=== PATIENT | female | born 1945 | race Caucasian/White ===

== ENCOUNTER 2017-08-14 08:18 | Inpatient (IN) | payer OTHER ==
[2017-07-27 08:21] VITALS: BMI 36.0
--- NOTE | 2017-07-27 08:54 | PAT Medication Instructions ---
Service Date Jul 27, 2017. Current Home Medication List Aspirin (Aspirin Ec), 81 MG PO HS Atorvastatin (Lipitor), 20 MG PO HS Calcium Carbonate-Vitamin D (Calcium + D), 1 TAB PO QAM Cholecalciferol (Vitamin D3), 1 TAB PO QAM Fluorometholone (Ophth) (Fml Liquifilm), 1 DROPS OPL QAM Hydrochlorothiazide (Hydrochlorothiazide), 1 TAB PO QAM Ibuprofen Tab (Advil), 400 MG PO PRN Lisinopril (Prinivil), 20 MG PO QAM Omeprazole (Prilosec), 20 MG PO QAM Rizatriptan Benzoate (Maxalt), 10 MG PO PRN Medication Instructions For Your Scheduled Surgery - Check with surgeon for instructions: Ibuprofen Tab (Advil), 400 MG PO PRN - Hold the following medications the morning of surgery: Lisinopril (Prinivil), 20 MG PO QAM Hydrochlorothiazide (Hydrochlorothiazide), 1 TAB PO QAM Calcium Carbonate-Vitamin D (Calcium + D), 1 TAB PO QAM Cholecalciferol (Vitamin D3), 1 TAB PO QAM - Take the following medications the morning of surgery with a sip of water: Fluorometholone (Ophth) (Fml Liquifilm), 1 DROPS OPL QAM Omeprazole (Prilosec), 20 MG PO QAM Rizatriptan Benzoate (Maxalt), 10 MG PO PRN (if needed) - Take the following medications as scheduled the night before surgery: Rizatriptan Benzoate (Maxalt), 10 MG PO PRN (if needed) Aspirin (Aspirin Ec), 81 MG PO HS Atorvastatin (Lipitor), 20 MG PO HS If you have any questions please call us at [phone] or [phone] or [phone]
--- NOTE | 2017-07-27 09:32 | DIAGNOSTIC IMAGING REPORT ---
CHEST 2 VIEWS ROUTINE CLINICAL HISTORY: 72 years-old Female presenting with preoperative assessment. TECHNIQUE: PA and lateral views of the chest were obtained. COMPARISON: None. FINDINGS: Cardiomediastinal silhouette normal. Lungs and pleural spaces clear. Partially visualized cervical fusion hardware. Cholecystectomy clips noted. IMPRESSION: 1. No acute cardiopulmonary disease. Electronically signed by: Josse Martins M.D. 07/27/2017 9:30 AM Dictated Date/Time: 07/27/2017 9:29 AM
[2017-07-27 10:35] LABS: BASO % 0.5 %; BASO ABS # 0.03 K/uL (0-0.2); EOS % 3.8 %; EOS ABS # 0.22 K/uL (0-0.5); HEMATOCRIT 38.5 % (37-47); HEMOGLOBIN 13.3 g/dL (12.0-16.0); LYMPH % 25.3 %; LYMPH ABS # 1.46 K/uL (1.2-3.4); MEAN CELL VOLUME 92.3 fL (80-100); MEAN CORPUSCULAR HEMOGLOBIN 31.9 pg (25-34); MEAN CORPUSCULAR HGB CONC 34.5 g/dl (32-36); MEAN PLATELET VOLUME 12.7 fL (7.4-10.4); MONO % 7.4 %; MONO ABS # 0.43 K/uL (0.11-0.59); NEUT ABS # 3.64 K/uL (1.4-6.5); PLATELET COUNT 196 K/uL (130-400); RED CELL DISTRIBUTION WIDTH CV 13.3 % (11.5-14.5); RED CELL DISTRIBUTION WIDTH SD 44.4 fL (36.4-46.3); WHITE BLOOD COUNT 5.78 K/uL (4.8-10.8)
[2017-07-27 10:54] LABS: PTT PATIENT 23.4 SECONDS (21.0-31.0)
--- NOTE | 2017-08-07 18:20 | HISTORY & PHYSICAL EXAMINATION ---
DATE OF ADMISSION: 08/14/2017 CHIEF COMPLAINT: Bilateral knee pain and discomfort, right side greater than left. HISTORY OF PRESENT ILLNESS: A 72-year-old female referred by my partner Dr. Lutz for treatment of her right knee, particularly. She has a long history of on and off bilateral knee pain and discomfort, right side greater than left. She did have her right knee scoped back in 2008. She had a scope and partial meniscectomy. She did pretty well for a while, but over the past year or so, she developed increased pain and discomfort which has gotten significantly worse over the past 6 months. She has failed conservative treatment including injections and medicines. She also reports instability of her knees as it gives out. She now would like to proceed with surgical treatment. PAST MEDICAL HISTORY: Significant for: 1. Hypertension. 2. Elevated cholesterol. 3. Sleep apnea. 4. Obesity with a BMI of 36.4. PAST SURGICAL HISTORY: Include: 1. Hysterectomy. 2. ACDF in 2000. 3. Right knee arthroscopy. 4. Left knee arthroscopy. 5. Sinus surgery. 6. Low back surgery. ALLERGIES: AMOXICILLIN, WHICH CAUSES GI UPSET. No real true allergy. CURRENT MEDICINES: Include: 1. Lisinopril. 2. Hydrochlorothiazide 3. Omeprazole. 4. Rizatriptan. 5. Aspirin. 6. Calcium. 7. Vitamin D. SOCIAL HISTORY: A 72-year-old female. She lives in [place]. She is . Rare alcohol intake. Does not smoke. FAMILY HISTORY: Significant for heart disease and stroke. REVIEW OF SYSTEMS: Negative for diabetes, neurologic problems, vascular problems, bleeding disorders. No chest pain or shortness of breath. No history of DVT or PE. PHYSICAL EXAMINATION: GENERAL: A pleasant, middle-aged female. Looks in pretty good health. HEENT: Benign. NECK: Supple. No lymphadenopathy. LUNGS: Clear to auscultation. HEART: Regular rate and rhythm. ABDOMEN: Soft, nontender, nondistended. EXTREMITIES: Grossly neurovascularly intact except as follows: Examination of the right leg reveals the patient walks with a slight bit of a limp. She has valgus alignment to her knee which is worse with weightbearing. She has a moderate soft tissue envelope. Small knee effusion. Range of motion is 5-125. No instability. X-RAYS: X-rays of the right knee reviewed. She has advanced right knee DJD. She has complete loss of her lateral joint space. She has osteophytes particularly in the lateral compartment. She has chondrocalcinosis. ASSESSMENT: A 72-year-old female with advanced bilateral knee degenerative joint disease, right side more symptomatic than the left. She has failed conservative treatment, would like to have her right knee replaced. PLAN: We are going to take her to the operating room and do a right total knee replacement. The risks and benefits of this procedure were explained to the patient include but not limited to DVT, PE, , infection, neurological injury, vascular injury, bleeding problem, pain, limited range of motion, stiffness, failure to relieve her symptoms, incomplete relief of symptoms, need for further surgery in future, fracture, leg length inequality, nerve palsy, etc. The patient understands and desires to proceed. Informed consent was obtained. We did talk about holding her lisinopril the morning of surgery. Her reaction to penicillin is not true anaphylaxis so we will give her Ancef. She is planning to be discharged home using [facility] home health program and her 's assistance.
[~2017-08-14] VITALS: Ht 160 cm; Wt 91.8 kg
[~2017-08-14 08:18] MED LIST: ACETAMINOPHEN 500 MG TAB PO SCH; ASPI81TA28 PO; ATOR-22 PO; BUPIVACAINE 0.5 % 5 MG/1 ML PF 10ML VIAL ONE; BUPIVACAINE LIPOSOME 266 MG, BUPIVACAINE/EPINEPHRINE INJ 50 ML, SODIUM CHLORIDE 0.9% PF... INFIL SCH; CALC600T9 PO; CEFAZOLIN 2000MG IV PUSH 15 ML IV SCH; CHOL1000 PO; FAMOTIDINE 20 MG TAB PO SCH; FLUO0.1S2 OPL; GABAPENTIN 300 MG CAP PO SCH; HYDR12.55 PO; IBUP-103 PO; LACTATED RINGER'S 1000ML 1,000 ML IV SCH; LACTATED RINGER'S 1000ML 500 ML IV SCH; LACTATED RINGER'S 1000ML IV SCH; LISI20TA3 PO; METOCLOPRAMIDE HCL 10 MG TAB PO SCH; PRLSR20 PO; RIZA10TA18 PO; TRANEXAMIC ACID INJ 1,000 MG x 2 Bags IV SCH
--- NOTE | 2017-08-14 08:44 | History & Physical Bridge Note ---
H&P Re-Evaluation Bridge Note: I have examined the patient, reviewed the History & Physical and in the interval since the performance of the History & Physical I have noted the following changes of clinical significance: No changes noted
[2017-08-14 08:59] VITALS: BP 147/98; PULSE 81; TEMP 36.6; O2SAT 97; Ht 160 cm; Wt 91.8 kg
[2017-08-14] MEDS ORDERED: LIDOCAINE HCL 2% 2 ML VIAL (20MG/ML) ONE (09:46)
[2017-08-14] MEDS ORDERED: PROPOFOL IV EMULSION 10 MG/ML 20 ML VIAL IV ONE (09:46)
[2017-08-14] MEDS ORDERED: ONDANSETRON INJ 2 MG/ML 2 ML VIAL ONE (09:46)
[2017-08-14] MEDS ORDERED: DEXAMETHASONE SOD INJ 4 MG/ML VIAL ONE (09:46)
[2017-08-14] MEDS ORDERED: MIDAZOLAM HCL 1 MG/ML 2ML VIAL ONE (09:47)
[2017-08-14] MEDS ORDERED: FENTANYL CITRATE INJ 50 MCG/1 ML 2 ML VIAL ONE (09:47)
[2017-08-14] MEDS ORDERED: SODIUM CHLORIDE 0.9% PF 50 ML VIAL ONE (10:43)
[2017-08-14] MEDS ORDERED: BUPIVACAINE LIPOSOME 1/3% 266 MG/20 ML VIAL INFIL ONE (10:43)
[2017-08-14] MEDS ORDERED: BACITRACIN 50000 UNIT VIAL ONE (10:43)
[2017-08-14] MEDS ORDERED: EpINEphrine INJ 1MG/ML AMP 1 MG/ML AMP ONE ×2 (10:44→10:55)
[2017-08-14] MEDS ORDERED: BUPIVACAINE 0.25% 30 ML VIAL ONE ×2 (10:44→10:53)
[2017-08-14] MEDS ORDERED: FENTANYL CITRATE INJ 50 MCG/1 ML 2 ML VIAL IV PRN (11:00)
[2017-08-14] MEDS ORDERED: EpHEDrine SULFATE INJ 50 MG/ML AMP IV PRN (11:00)
[2017-08-14] MEDS ORDERED: ONDANSETRON INJ 2 MG/ML 2 ML VIAL IV PRN ×2 (11:00→12:45)
[2017-08-14] MEDS ORDERED: ATROPINE SULFATE 0.1 MG/ML 5ML SYR IV PRN (11:00)
--- NOTE | 2017-08-14 12:38 | [facility] Post Operative Brief Note ---
Immediate Operative Summary Operative Date Aug 14, 2017. Pre-Operative Diagnosis Right Knee Degenerative Joint Disease Post-Operative Diagnosis Right Knee Degenerative Joint Disease Procedure(s) Performed Right Total Knee Arthroplasty Cemented Surgeon Dr Trimble Market Risk Analyst Surgeon(s) Enrique Neely PA-C Estimated Blood Loss 50cc Findings Consistent with Post-Op Diagnosis Specimens As Per Surgeon A. Right Knee Bone and Tissue Drains None Anesthesia Type MAC Spinal Regional Complication(s) none Disposition Accompanied Pt To Recover: no Disposition: Recovery Room / PACU
[2017-08-14] MEDS ORDERED: BISACODYL 10 MG SUPP PR PRN (12:45)
[2017-08-14] MEDS ORDERED: MAGNESIUM HYDROXIDE SUSP 30 ML UDC PO PRN (12:45)
[2017-08-14] MEDS ORDERED: CEFAZOLIN IV 2,000 MG in DEXTROSE 5% 50ML 50 ML IV SCH (12:45)
[2017-08-14] MEDS ORDERED: ALUMINUM/MAGNESIUM/SIMETH (MAALOX MAX) 30 ML UDC PO PRN (12:45)
[2017-08-14] MEDS ORDERED: SILVER SULFADIAZINE 1% CR 50 GM JAR EXT PRN (12:45)
[2017-08-14] MEDS ORDERED: METOCLOPRAMIDE HCL INJ 5 MG/ML 2 ML VIAL IV PRN (12:45)
[2017-08-14] MEDS ORDERED: ZOLPIDEM TARTRATE 5 MG TAB PO PRN (12:45)
[2017-08-14] MEDS ORDERED: RIZATRIPTAN BENZOATE 10 MG TAB PO PRN (12:45)
[2017-08-14] MEDS ORDERED: HYDROmorphone INJ 0.5 MG/0.5 ML SYR IV PRN (12:45)
--- NOTE | 2017-08-14 13:10 | DIAGNOSTIC IMAGING REPORT ---
R KNEE 1 OR 2 VIEWS ROUTINE CLINICAL HISTORY: Postoperative evaluation. COMPARISON: Right knee radiographs February 20, 2017. FINDINGS: Alignment of the total right knee arthroplasty is anatomic. There is no fracture or unexpected radiopaque foreign body. Skin debra are present. IMPRESSION: Expected findings following total right knee arthroplasty. Electronically signed by: Gautam Jerome M.D. 08/14/2017 1:08 PM Dictated Date/Time: 08/14/2017 1:08 PM
--- NOTE | 2017-08-14 13:20 | Anesthesiology Progress Note ---
Anesthesia Post Op Note Date & Time Aug 14, 2017 at 13:20 Vital Signs Pain Intensity: 0 Vital Signs Past 12 Hours Date Time Temp Pulse Resp B/P (MAP) Pulse Ox O2 Delivery O2 Flow Rate FiO2 08/14/17 13:15 36.3 84 19 111/68 97 Nasal Cannula 2 08/14/17 13:05 84 10 113/71 98 Nasal Cannula 2 08/14/17 12:55 88 11 117/65 98 Nasal Cannula 2 08/14/17 12:46 36.4 91 24 77/59 94 Nasal Cannula 2 08/14/17 08:59 36.6 81 18 147/98 97 Room Air Notes Mental Status: alert / awake / arousable, participated in evaluation Pt Amnestic to Procedure: Yes Nausea / Vomiting: adequately controlled Pain: adequately controlled Airway Patency, RR, SpO2: stable & adequate BP & HR: stable & adequate Hydration State: stable & adequate Neuraxial Anesthesia: was administered, sensory block is resolving Anesthetic Complications: no major complications apparent
[2017-08-14 14:08] VITALS: BP 122/81; PULSE 81; TEMP 36.5; O2SAT 98
[2017-08-14 14:42] VITALS: BP 140/81; PULSE 88; TEMP 36.5; O2SAT 93
[2017-08-14] MEDS: D5W AND 1/2NSS + 20MEQ KCL 1,000 ML IV SCH (15:08)
--- NOTE | 2017-08-14 15:10 | PROGRESS NOTE ---
DATE: 08/14/2017 SUBJECTIVE: A 72-year-old female postop from a right knee replacement. She is doing well. Not having any pain yet. No chest pain or shortness of breath. Not feeling dizzy or lightheaded. OBJECTIVE: VITAL SIGNS: Temperature is 36.5. Vital signs stable. PHYSICAL EXAMINATION: GENERAL: Reveals a pleasant elderly female. She is sitting up in bed and looks comfortable. She is talking to her family. She has eaten her lunch/dinner combination. LUNGS: Clear to auscultation. HEART: Has a regular rate and rhythm. ABDOMEN: Soft, nontender, nondistended. EXTREMITIES: Grossly neurovascularly intact except as follows. Examination of the right knee reveals the leg to be well aligned. Dressing is clean, dry and intact. She can dorsiflex and plantarflex her foot appropriately. She is neurologically intact. X-RAYS: X-ray of the right knee from recovery room reviewed. It shows right cemented posterior stabilized total knee arthroplasty. Components looked to be in good position. No signs of problems. ASSESSMENT: A 72-year-old female postop from a right knee replacement, doing well. Pain is controlled. She is neurologically intact. PLAN: 1. DVT prophylaxis including thigh-high TEDs, SCDs, and aspirin twice a day. 2. PT/OT. Weight bear as tolerated. Right total knee protocol. 3. Pain control, doing well with current pain regimen. 4. IV antibiotics x24 hours. 5. Disposition: Plan to discharge to home with some home health likely once adequately recovered.
[2017-08-14] MEDS: TRAMADOL HCL 50 MG TAB PO PRN ×2 (15:15→20:33)
[2017-08-14 15:27] VITALS: BP 120/79; PULSE 80; TEMP 36.5; O2SAT 93
--- NOTE | 2017-08-14 16:52 | OPERATIVE REPORT ---
DATE OF OPERATION: 08/14/2017 SURGEON: Cruzito Trimble MD RESIDENTIAL SOLAR CONSULTANT: HANY Vogel PREOPERATIVE DIAGNOSIS: Right knee degenerative joint disease. POSTOPERATIVE DIAGNOSIS: Same. PROCEDURE PERFORMED: Right cemented posterior stabilized total knee arthroplasty. COMPLICATIONS: None. ESTIMATED BLOOD LOSS: 50 mL FLUID REPLACEMENT: 2000 mL crystalloid fluid replacement. ANESTHESIA: Spinal with adductor canal block. DRAINS: None. SPECIMENS: Right knee sent for pathology. OPERATIVE INDICATIONS: The patient is a 72-year-old female who had a fairly long history of bilateral knee pain and discomfort. She has been treated by my partner Dr. Lutz over the years. This became less successful over time. X-rays show advanced DJD and she would like to proceed with surgical treatment. OPERATIVE FINDINGS: Operative findings revealed advanced right knee DJD. She had grade 4 [id number] disease particularly in the lateral compartment. She did have grade 4 changes in all 3 compartments, but most severe laterally. She had a fixed valgus deformity to her knee. She had eburnation of the lateral femoral condyle and lateral tibial plateau. OPERATIVE IMPLANTS: Operative implants consisted of: 1. A Biomet Vanguard size 65 right posterior stabilized femoral component. 2. A Biomet size 67 tibial tray. 3. A 10-mm posterior stabilized polyethylene insert. 4. A 28 x 8 all poly patella. OPERATIVE PROCEDURE: The patient was taken to the operating room, identified and placed on the operating table in supine position. All contact areas were appropriately padded. IV antibiotics were provided by the anesthesia team. A spinal anesthetic and adductor canal block provided in the holding area. Serrano catheter was placed in sterile fashion. The right thigh tourniquet was then placed. The right lower extremity was then prepped and draped in usual sterile fashion. The right leg was elevated and exsanguinated with Esmarch and tourniquet was placed at 300 mmHg. An anterior approach to the right knee was then performed through a longitudinal incision centered over the patella. Sharp dissection was carried out through the subcutaneous tissues down to the level of the extensor mechanism. A medial parapatellar arthrotomy incision was made. Some subperiosteal dissection was carried out medially. The fat pad was resected from beneath the patellar tendon. The lateral patellofemoral ligament was released. Patella was everted and the knee was flexed. The osteophytes were taken off the distal femur. The ACL and PCL were then released from the distal femur. The tibia was subluxated anteriorly. The external tibial alignment jig was then placed in the anterior face of the tibia and adjusted 12 mm medially. Proximal tibial cut was made to remove about 3-4 mm of bone from the most deficient aspect of the medial tibial plateau. The tibia was then sized to a size 67. Attention was then drawn to the femur. The distal femur was entered with a sharp drill bit. Intramedullary canal was suctioned. A right 5-degree valgus cutting guide was placed. The distal femoral cutting block was pinned in place. Distal femoral cut was made to take an additional 3 mm of bone off the distal femur. Femur was then sized to a size 65. We did downsize this slightly. The AP cutting block was pinned parallel to the epicondylar axis, which was 6 degrees of external rotation. The anterior cut, anterior chamfer, posterior cut, posterior chamfer cuts were made. Box cutting guide was placed and adjusted slight lateral and the box cut was made. I then brought the knee out in extension. I did release the IT band in order to equalize the extension gap. I then flexed the knee and released the popliteus to equalize the flexion gap. A trial femoral component was placed. Tibial tray was pinned in maximum external rotation and drill and stem punch were used to create defect in proximal tibia for the tibial tray. The knee was then trialed and the 10-mm insert fit most appropriately. Attention was then drawn to the patella. The patella was cleaned of all soft tissues. Patella thickness measured 18 mm in thickness and was cut down to 12. It was sized to a size 28 patella. Locals were drilled for a 28 patella. Lateral osteophyte was removed. Patella button was placed. The knee was taken through range of motion and the patella tracked nicely with no thumbs test. Attention was then drawn toward placement of permanent components. All trial components were removed. A bone plug was placed in the distal femur to limit blood loss. A double batch of Palacos G cement was mixed. A right size 65 posterior stabilized femoral component, size 67 tibial tray, a 10-mm posterior stabilized polyethylene insert, and a 28 x 8 all poly patella then cemented in place. The knee was brought into full extension until cement hardened. A final cement check was then performed. Pericapsular tissues were injected with a total of 100 mL of a combination of 20 mL of Exparel, 30 mL normal saline, 50 mL of 0.25% Marcaine with epinephrine. The patient did receive 1 gram of tranexamic acid. The tourniquet was then let down for a tourniquet time of 51 minutes. Hemostasis was assured with the use of electrocautery. The wound was once again irrigated. The extensor mechanism was then closed with a combination of #1 PDS suture and #1 Vicryl suture in a [id number] fashion. Extensor mechanism was checked and found to be intact. The subcutaneous tissue then closed with 2-0 Dexon suture in a buried interrupted fashion. Skin was closed with skin debra. Leg was then cleaned and dried and a sterile dressing of Xeroform, 4 x 4's, sterile cast padding and Michael bandage were applied. The patient was then transferred to the recovery room in stable condition. The patient tolerated the procedure well with no complications. All needle and sponge counts were correct at the end of the operation. I attest to the content of the Intraoperative Record and any orders documented therein. Any exception s are noted below.
[2017-08-14] MEDS: KETOROLAC TROMETHAMINE 15 MG/ML VIAL IV. SCH (17:35)
[2017-08-14] MEDS ORDERED: TRANEXAMIC ACID INJ 1,000 MG in SODIUM CHLORIDE 0.9% 100ML 100 ML IV SCH (18:00)
[2017-08-14] MEDS: FERROUS GLUCONATE 324 MG TAB PO SCH (18:19)
[2017-08-14] MEDS: CEFAZOLIN IV 2,000 MG in SYRINGE 0 ML IV SCH (20:12)
[2017-08-14] MEDS: ACETAMINOPHEN 500 MG TAB PO SCH (20:13)
[2017-08-14] MEDS: ATORVASTATIN 20 MG TAB PO SCH (20:13)
[2017-08-14] MEDS: ASPIRIN 81 MG ECTAB PO SCH (20:14)
[2017-08-14] MEDS: SENNA 8.6 MG TAB PO SCH (20:15)
[2017-08-14] MEDS: DOCUSATE SODIUM 100 MG CAP PO SCH (20:15)
[2017-08-14 20:28] VITALS: BP 117/77; PULSE 94; TEMP 36.5; O2SAT 94
[2017-08-14 23:25] VITALS: BP 118/82; PULSE 85; TEMP 36.6; O2SAT 91
[2017-08-15] MEDS: D5W AND 1/2NSS + 20MEQ KCL 1,000 ML IV SCH ×2 (00:14→10:28)
[2017-08-15] MEDS: KETOROLAC TROMETHAMINE 15 MG/ML VIAL IV. SCH ×5 (00:14→23:55)
[2017-08-15 03:29] VITALS: BP 117/75; PULSE 84; TEMP 36.5; O2SAT 96
[2017-08-15] MEDS: ACETAMINOPHEN 500 MG TAB PO SCH ×3 (03:55→20:15)
[2017-08-15] MEDS: CEFAZOLIN IV 2,000 MG in SYRINGE 0 ML IV SCH (03:55)
[2017-08-15 06:19] LABS: HEMATOCRIT 29.5 % (37-47); HEMOGLOBIN 10.2 g/dL (12.0-16.0); MEAN CELL VOLUME 90.8 fL (80-100); MEAN CORPUSCULAR HEMOGLOBIN 31.4 pg (25-34); MEAN CORPUSCULAR HGB CONC 34.6 g/dl (32-36); MEAN PLATELET VOLUME 12.2 fL (7.4-10.4); PLATELET COUNT 160 K/uL (130-400); RED CELL DISTRIBUTION WIDTH CV 13.7 % (11.5-14.5); RED CELL DISTRIBUTION WIDTH SD 45.8 fL (36.4-46.3); WHITE BLOOD COUNT 10.23 K/uL (4.8-10.8)
[2017-08-15 06:42] LABS: CREATININE 0.8 mg/dl (0.60-1.20)
[2017-08-15 07:12] VITALS: BP_SYST 114; BP_SYST 122; BP_DIAS 70; BP_DIAS 77; PULSE 64; PULSE 66; TEMP 36.7; O2SAT 93; O2SAT 94
--- NOTE | 2017-08-15 07:29 | PROGRESS NOTE ---
DATE: 08/15/2017 SUBJECTIVE: A 72-year-old female postop day 1 from right knee replacement. She is doing well. Really not much pain this morning. No chest pain or shortness of breath. Not feeling dizzy or lightheaded. OBJECTIVE: VITAL SIGNS: Temperature 36.5. Vital signs stable. GENERAL: Reveals a pleasant, elderly female. She is sitting up in bed and looks quite comfortable. She is awake, alert and oriented. EXTREMITIES: Examination of the right leg reveals the dressing to be clean, dry and intact. She can dorsiflex and plantarflex her foot appropriately. She is neurologically intact. LABORATORY DATA: Hemoglobin 10.2. Hematocrit 29.5. Electrolytes are stable. ASSESSMENT: A 72-year-old female postop day 1 from a right knee replacement, doing well. Pain is controlled. She is neurologically intact. PLAN: 1. DVT prophylaxis including thigh-high TEDs, SCDs, and aspirin twice a day. 2. PT/OT. Weight bear as tolerated. Right total knee protocol. 3. Pain control. Doing well with current pain regimen. 4. Disposition: She is hoping to be discharged to home with some home health once adequately recovered.
[2017-08-15] MEDS: TRAMADOL HCL 50 MG TAB PO PRN (08:40)
[2017-08-15] MEDS: HYDROCHLOROTHIAZIDE 25 MG TAB PO SCH (08:40)
[2017-08-15] MEDS: ASPIRIN 81 MG ECTAB PO SCH ×2 (08:41→20:15)
[2017-08-15] MEDS: PANTOprazole SOD 40 MG TAB PO SCH (08:41)
[2017-08-15] MEDS: DOCUSATE SODIUM 100 MG CAP PO SCH ×2 (08:41→20:15)
[2017-08-15] MEDS: MULTIVITAMIN TAB PO SCH (08:42)
[2017-08-15] MEDS: CALCIUM 600MG + VIT D 400 IU TAB PO SCH (08:42)
[2017-08-15] MEDS: FERROUS GLUCONATE 324 MG TAB PO SCH ×3 (08:42→18:03)
[2017-08-15] MEDS: LISINOPRIL 20 MG TAB PO SCH (08:43)
[2017-08-15] MEDS: CHOLECALCIFEROL 400 INTER.UNIT TAB PO SCH (08:43)
[2017-08-15] MEDS ORDERED: NON-FORMULARY MEDICATION (Omeprazole (Prilosec) 20 MG) PO SCH (09:00)
[2017-08-15 10:53] VITALS: BP 127/77; PULSE 66; O2SAT 95
[2017-08-15 11:32] VITALS: BP 114/73; PULSE 76; TEMP 36.6; O2SAT 95
[2017-08-15 15:45] VITALS: BP 140/82; PULSE 85; TEMP 36.6; O2SAT 98
[2017-08-15] MEDS: ATORVASTATIN 20 MG TAB PO SCH (20:15)
[2017-08-15] MEDS ORDERED: ACET-24 PO (20:15)
[2017-08-15] MEDS ORDERED: ASPEC81 PO (20:15)
[2017-08-15] MEDS: SENNA 8.6 MG TAB PO SCH (20:15)
[2017-08-15] MEDS ORDERED: ULT50X PO (20:15)
[2017-08-15] MEDS ORDERED: FRRG PO (20:15)
--- NOTE | 2017-08-15 20:18 | Discharge Instructions ---
Discharge Instructions Date of Service Aug 15, 2017. Admission Reason for Admission: Right Knee Degenerative Joint Disease Discharge Discharge Diagnosis / Problem: Right Knee Replacement Discharge Goals Goal(s): Decrease discomfort, Improve function, Increase independence, Improve disease control, Therapeutic intervention Activity Recommendations Activity Limitations: per Instructions/Follow-up section Weightbearing Status: Right weightbearing . Instructions / Follow-Up Instructions / Follow-Up ACTIVITY RECOMMENDATIONS: Physical Therapy: * You will go to physical therapy three times each week for four to six weeks after your surgery in order to regain your knee range of motion and to retrain your knee to work properly. * It is just as important to make sure you are getting your knee perfectly straight as it is to regain your knee bend. * Taking a pain pill an hour before therapy can help you have a more productive and comfortable therapy session. Home Exercise: * You were shown a series of exercises (heel props, heel slides, etc.) in the hospital. Do these exercises three to four times each day including the exercises you were shown in physical therapy. Walking: * Get up and walk several times each day. For the first four weeks, try not to stand or walk for more than one hour at a time. If you do stand or walk for more than one hour, you will not hurt anything, but your knee and leg will likely swell. * As you feel comfortable, you may change from the walker or crutches to a cane and then to independent walking. MEDICATIONS: New Medicine: * You will likely be taking one or more of these medications: 1. Tramadol - A quick and shorter-acting pain medication. Take one to two tablets every four to six hours to lessen your pain. 2. Iron Sulfate - Take two times each day for the month after surgery to help you replace the blood lost during surgery. 3. Aspirin - Thins your blood to lessen the chance of forming a blood clot. * The most common side effects of pain medicine and iron are nausea and constipation. If nausea or constipation is too much of a problem or if you have any questions about your new medicines or doses, call [facility] at . We will try to help you manage these issues. VERY IMPORTANT TO READ AND REVIEW" Pain: * The immediate post-operative period after knee replacement surgery is often quite painful. * You are given a prescription for pain medicine. You should take it, as directed, when you need it, especially before physical therapy and before going to bed. Pain that interferes with sleep is very common and can last several months. * You will likely need pain medicine for the first four to six weeks. It will not stop all of the pain. The pain will lessen and as you feel better, you may change to milder pain medicine such as Tylenol. * The most common side effects of pain medicine are nausea and constipation, so don't take more than you need. SPECIAL CARE INSTRUCTIONS: TEDs/Elastic Stockings: * The white elastic stockings help limit swelling and prevent blood clots from forming in your legs. The more you wear them, the more they work. * Wear them for six weeks after knee replacement surgery and four weeks after partial knee replacement. Prevention of Infection: * Take antibiotics one hour before any dental cleaning, dental work, urological procedure, gastrointestinal procedure or any invasive surgery in order to prevent your new joint from getting infected. * You may get the antibiotics from the doctor performing the procedure or you may call our office at before and we will call in a prescription to the pharmacy of your choice. Things to Watch For: * Drainage from the incision site that occurs more than one week after your surgery. * Severely increased knee/leg pain or swelling. * Increased redness at the incision site. * Fever above 102 degrees Fahrenheit. * Unusual chest pain or shortness of breath. * Unusual pain or burning with urination. Call [facility] at with any of the above problems or if you have any questions about your medicines or recovery. FOLLOW UP VISIT: Make an appointment to see your doctor for approximately two weeks after surgery for a progress check and staple removal by calling the office at . Current Hospital Diet Patient's current hospital diet: Regular Diet Discharge Diet Recommended Diet: Regular Diet Procedures Procedures Performed: Right Total Knee Arthroplasty Cemented Pending Studies Studies pending at discharge: no Medical Emergencies . Who to Call and When: Medical Emergencies: If at any time you feel your situation is an emergency, please call 501 immediately. . Non-Emergent Contact Non-Emergency issues call your: Surgeon . "Provider Documentation" section prepared by Cruzito Trimble. .
[2017-08-15 23:06] VITALS: BP 123/76; PULSE 86; TEMP 36.8; O2SAT 91
[2017-08-16] MEDS: ACETAMINOPHEN 500 MG TAB PO SCH (04:04)
[2017-08-16] MEDS: KETOROLAC TROMETHAMINE 15 MG/ML VIAL IV. SCH (06:00)
--- NOTE | 2017-08-16 06:23 | PROGRESS NOTE ---
DATE: 08/16/2017 SUBJECTIVE: A 72-year-old white female postop day 2 from a right knee replacement. She is doing well. Surprisingly little pain. Therapy went well. No chest pain or shortness of breath. Not feeling dizzy or lightheaded. OBJECTIVE: VITAL SIGNS: Temperature 36.8. Vital signs stable. GENERAL: Reveals a pleasant, middle-aged female. She is lying in bed this morning and looks quite comfortable. EXTREMITIES: Examination of the right leg reveals the dressing to be clean, dry and intact. Calf is soft and supple. She can dorsiflex and plantarflex her foot appropriately. She is neurologically intact. ASSESSMENT: A 72-year-old white female postop day 2 from right knee replacement, doing pretty well. Pain is controlled. PLAN: 1. DVT prophylaxis including thigh TEDs, SCDs, and aspirin twice a day. 2. PT/OT. Weight bear as tolerated. Right total knee protocol. 3. Pain control, doing pretty well with current pain regimen. 4. Disposition: Plan to discharge to home with some home health later today.
[2017-08-16 06:44] VITALS: BP 125/74; PULSE 84; TEMP 36.8; O2SAT 94
[2017-08-16] MEDS: LISINOPRIL 20 MG TAB PO SCH (07:55)
[2017-08-16] MEDS: MULTIVITAMIN TAB PO SCH (07:55)
[2017-08-16] MEDS: DOCUSATE SODIUM 100 MG CAP PO SCH (07:55)
[2017-08-16] MEDS: ASPIRIN 81 MG ECTAB PO SCH (07:55)
[2017-08-16] MEDS: CALCIUM 600MG + VIT D 400 IU TAB PO SCH (07:55)
[2017-08-16] MEDS: FERROUS GLUCONATE 324 MG TAB PO SCH (07:55)
[2017-08-16] MEDS: CHOLECALCIFEROL 400 INTER.UNIT TAB PO SCH (07:55)
[2017-08-16] MEDS: PANTOprazole SOD 40 MG TAB PO SCH (07:55)
[2017-08-16] MEDS: HYDROCHLOROTHIAZIDE 25 MG TAB PO SCH (07:55)
[2017-08-16 09:26] VITALS: BP 125/74; PULSE 84; TEMP 36.8; O2SAT 94
[2017-08-16] MEDS: TRAMADOL HCL 50 MG TAB PO PRN ×3 (10:27→11:34)
== END 2017-08-16 11:53 | disposition home health service (06) | DRG 470 ==
LOC: C.ACU 08:18 → C.3E 12:43 → ENRESERV 13:02
PROVIDERS: ADMIT Orthopaedic Surgery Sports Medicine; ATTEND Orthopaedic Surgery Sports Medicine
PROC: 0SRC0J9 Replacement of Right Knee Joint with Synthetic Substitute, Cemented, Open Approach (ICD-10-PCS; principal; 2017-08-14 11:00)
DX: M17.0 Bilateral primary osteoarthritis of knee (principal); I10 Essential (primary) hypertension; E78.00 Pure hypercholesterolemia, unspecified; G47.30 Sleep apnea, unspecified; E66.9 Obesity, unspecified; Z68.36 Body mass index [BMI] 36.0-36.9, adult; Z79.899 Other long term (current) drug therapy; Z79.82 Long term (current) use of aspirin

== ENCOUNTER 2022-04-01 05:01 | Observation (INO) ==
--- NOTE | 2022-03-26 10:52 | Anesthesiology Consultation ---
Date of Service March 26, 2022 Assessment & Plan (1) Encounter for pre-operative examination: Outpatient joint assessment: Patient is currently scheduled for inpatient pathway. If re-evaluated pending system levels during current pandemic/surgeon requests outpatient pathway, patient is not recommended candidate for outpatient joint program from anesthesia standpoint. - COVID screening: Per cupola operator on 03/26/2022: Travel screen negative, no known COVID-19 positive contacts or current COVID-19 related symptoms in past 2 weeks. To surgeon's discretion if preop COVID testing needed. Chart Review Chart Review: Acceptable Risk for Surgery and Patient NOT seen in Pre Admission Testing History Surgery Operation Date: 04/01/22 12:45 Proposed Procedures p Left Total Knee Arthroplasty - Cruzito Trimble MD Height/Weight Height: 5 ft 4 in Weight: 86.183 kg Allergies Allergy/AdvReac Type Severity Reaction Status Date / Time trifluridine Allergy Severe itching Verified 03/26/22 10:49 amoxicillin AdvReac Mild DIARRHEA Verified 03/26/22 10:07 Penicillins AdvReac Mild DIARRHEA Verified 03/26/22 10:07 Medications Home Medications Medication Instructions Recorded Confirmed Last Taken amoxicillin 500 mg tablet 2,000 mg PO ONCE #4 tabs 03/05/21 03/26/22 Unknown aspirin 81 mg capsule 81 mg PO HS 03/26/22 03/26/22 Unknown atorvastatin 20 mg tablet 20 mg PO HS 03/26/22 03/26/22 Unknown azelaic acid 15 % topical gel 1 applic topical BID PRN rosacea 03/26/22 03/26/22 Unknown calcium carbonate 600 mg-vitamin 1 tab PO QAM 03/26/22 03/26/22 Unknown D3 10 mcg (400 unit) tablet (Calcium 600 + D(3)) cetirizine 10 mg tablet (Zyrtec) 10 mg PO QAM 03/26/22 03/26/22 Unknown cholecalciferol (vitamin D3) 25 25 mcg PO QAM 03/26/22 03/26/22 Unknown mcg (1,000 unit) tablet (Vitamin D3) fluorometholone 0.1 % eye 1 drp ophthalmic (eye) 3XWK 03/26/22 03/26/22 Unknown drops,suspension hydrochlorothiazide 12.5 mg tablet 12.5 mg PO QAM 03/26/22 03/26/22 Unknown lisinopril 20 mg tablet 20 mg PO QAM 03/26/22 03/26/22 Unknown omeprazole 20 mg tablet,delayed 20 mg PO QAM 03/26/22 03/26/22 Unknown release rizatriptan 10 mg tablet 10 mg PO UD PRN Migraine Headache 03/26/22 03/26/22 Unknown Past Medical History Medical History (Updated 03/26/22 @ 10:48 by Penny Hester PA-C) GERD (gastroesophageal reflux disease) Hyperlipidemia Hypertension Migraine Prediabetes Past Family History Family History Mother Family history of reaction to anesthesia nausea/vomiting Past Surgical History Surgical History (Updated 03/26/22 @ 10:48 by Penny Hester PA-C) History of arthroscopy of left knee History of arthroscopy of right knee History of bilateral tubal ligation History of cholecystectomy History of colonoscopy History of esophagogastroduodenoscopy (EGD) History of fusion of cervical spine ROM History of lumbar discectomy History of sinus surgery History of tooth extraction History of total right knee replacement (TKR) 08/14/17: L3-L4 1 attempt + PNB. History of wisdom tooth extraction Social History Smoking Status: Never smoker Do You Dip or Chew Tobacco: No Hx Alcohol Use: Yes Alcohol type: wine alcohol intake frequency: a few times a month Hx Substance Use: No substance use type: does not use Lab Results Anesthesia Preop Results Results Anesthesia Widget: WBC 4.81 K/ul (4.8-10.8) 03/13/22 Hgb 12.4 g/dl (12.0-16.0) 03/13/22 Hct 35.9 % (34.1-44.9) 03/13/22 Plt 185 K/uL (130-400) 03/13/22 Na 140 mmol/L (136-145) 03/13/22 K 3.7 mmol/L (3.5-5.1) 03/13/22 Cl 103 mmol/L (98-107) 03/13/22 CO2 29 mmol/L (21-32) 03/13/22 BUN 21 mg/dl (6-23) 03/13/22 Creat 0.73 mg/dl (0.6-1.2) 03/13/22 Glucose Level 97 mg/dl (70-99(Fasting)) 03/13/22 PT 10.9 Seconds (9.0-12.0) 03/13/22 PTT 24.4 Seconds (21.0-31.0) 03/13/22 INR 1.0 (0.9-1.1) 03/13/22 Blood Type A Positive 03/13/22 Antibody Screen NEGATIVE 03/13/22 Testing Electrocardiogram Date: 03/13/22 Sinus rhythm with 1st degree AV block, rate 63 bpm
[2022-04-01] MEDS ORDERED: METOCLOPRAMIDE HCL 10 MG TABLET PO SCH (06:00)
[2022-04-01] MEDS ORDERED: LR 60ML/HR IV SCH (06:00)
[2022-04-01] MEDS ORDERED: ACETAMINOPHEN 500 MG TAB PO SCH (06:00)
[2022-04-01] MEDS ORDERED: LR 500ML BOLUS, THEN 15ML/HR IV SCH (06:00)
[2022-04-01] MEDS ORDERED: FAMOTIDINE 20 MG TAB PO SCH (06:00)
[2022-04-01] MEDS ORDERED: TRANEXAMIC ACID 1,000 MG **IV Intra-op IV SCH (06:00)
[2022-04-01] MEDS ORDERED: BUPIVACAINE LIPOSOME/PF 266 MG, BUPIVACAINE/EPINEPHRINE 50 ML, SODIUM CHLORIDE 0.9% 30 ... INFIL SCH (06:00)
[2022-04-01] MEDS ORDERED: CeleBREX 200 MG CAP PO SCH (06:00)
[2022-04-01] MEDS ORDERED: ceFAZolin 2000MG 2,000 MG/15 ML SYR IV SCH (06:00)
[2022-04-01] MEDS ORDERED: MIDAZOLAM HCL 1 MG/ML 2ML VIAL ONE (06:20)
[2022-04-01] MEDS ORDERED: PROPOFOL IV EMULSION 10 MG/ML 20 ML VIAL IV ONE ×2 (06:21)
[2022-04-01] MEDS ORDERED: fentaNYL citrate 100 MCG/2 ML VIAL ONE (06:21)
[2022-04-01] MEDS ORDERED: BUPIVACAINE 0.5 % 5 MG/1 ML PF 10ML VIAL ONE (06:27)
[2022-04-01] MEDS ORDERED: EPINEPHrine INJ 1 MG/ML AMP ONE (06:27)
[2022-04-01] MEDS ORDERED: DEXAMETHASONE SOD INJ 4 MG/ML VIAL ONE ×2 (06:27→08:11)
[2022-04-01] MEDS ORDERED: BUPIVACAINE 0.25% 30 ML VIAL ONE (06:27)
--- NOTE | 2022-04-01 06:31 | XRay Report ---
XR chest 2V PA/lateral CLINICAL HISTORY: Preoperative evaluation. COMPARISON STUDY: Chest radiograph 07/27/2017. FINDINGS: Spine fusion is partially imaged. There are cholecystectomy clips. Lung volumes are normal. Lungs are clear. There is no pneumothorax or pleural effusion. Mild cardiomegaly. Mediastinal contou rs are normal. There is no evidence for pulmonary edema. IMPRESSION: No acute cardiopulmonary findings. ACT 112: Negative or not required by law. Electronically signed by: Gautam Jerome M.D. 04/01/2022 6:29 AM
[2022-04-01] MEDS ORDERED: BUPIVACAINE LIPOSOME 1.3% 266 MG/20 ML VIAL ONE (06:36)
[2022-04-01] MEDS ORDERED: BUPIVACAINE/EPINEPHRINE 0.25% 1:200,000 30 ML VIAL ONE (06:36)
[2022-04-01] MEDS ORDERED: SODIUM CHLORIDE 0.9% PF 50 ML VIAL ONE (06:36)
--- NOTE | 2022-04-01 06:54 | History & Physical Bridge Note ---
Date of Service April 01, 2022 History & Physical Bridge Note I have examined the patient, reviewed the History & Physical and in the interval since the performance of the History & Physical I have noted the following changes of clinical significance: no changes noted
[2022-04-01] MEDS ORDERED: ONDANSETRON INJ 2 MG/ML 2 ML VIAL ONE (08:11)
[2022-04-01] MEDS ORDERED: ePHEDrine sulfate 50 MG/ML AMP IV PRN (08:41)
[2022-04-01] MEDS ORDERED: ONDANSETRON INJ 2 MG/ML 2 ML VIAL IV PRN ×2 (08:41→09:53)
[2022-04-01] MEDS ORDERED: ATROPINE SULFATE 0.1 MG/ML 10ML SYR IV PRN (08:41)
[2022-04-01] MEDS ORDERED: fentaNYL citrate 100 MCG/2 ML VIAL IV PRN (08:41)
--- NOTE | 2022-04-01 09:04 | Operative Report ---
PG Post Operative Report Pre & Post Diagnosis Operation Date: 04/01/22 07:00 Pre-Op Diagnosis: Left Knee Degenerative Joint Disease Post-Op Diagnosis: Left Knee Degenerative Joint Disease I identified the patient and participated in the time-out.: Yes Procedure Operation Date: 04/01/22 07:00 Actual Procedures p Left Total Knee Arthroplasty(Left) - Cruzito Trimble MD Surgeon Cruzito Trimble MD Residential Housekeeper Enrique Neely PA-C Estimated Blood Loss 50 Findings Consistent with Post-Op Diagnosis Operative findings were advanced left knee tricompartment DJD. She had grade 4 changes in all 3 compartments most severe in the medial side. Osteophytes primarily medially. Some moderate osteopenia. Fluids 1200 cc Specimens Left knee sent for pathology Anesthesia Type Spinal MAC Complications none Disposition Accompanied Patient To Recovery: No Indications Patient is 76-year-old female has had a long history of knee problems. She had a right knee replaced about 4 and half years ago and done well from this. She developed progressive increasing pain discomfort and limitations with regard to her left knee. X-ray showed advanced tricompartment arthritis. She elected proceed with surgical treatment. Description of Procedure Operative implants consist of: 1. Biomet Vanguard size 65 left posterior stabilized femoral component. 2. Biomet size 67 tibial tray. 3. 14 mm posterior stabilized polyethylene insert. 4. 28 x 8 all Paller patella. The patient was taken the operating, identified, placed on the operating table supine position. All contact. Were appropriately padded. IV antibiotics tried by anesthesia team. A a spinal anesthetic and abductor canal block had provided holding area. Serrano catheter was placed in sterile fashion. Left thigh tent was then placed in the left lower extremities then prepped and draped in usual sterile fashion. The left leg was elevated exsanguinated with use of an Esmarch in terms playset 300 mmHg. An anterior approach left knee was then performed to longitudinal incision centered over the patella. Sharp dissection got through subcutaneous tissue down the extensor mechanism. A medial parapatellar arthrotomy incision was made. Some subperiosteal dissection was carried out medially. The fat pad was resected from Neath patella tendon. Lateral patellofemoral ligament was released. Patella subluxated laterally and the knee was flexed. The osteophytes taken off distal femur. The ACL PCL then released from the distal femur the tibia subluxated anteriorly. The external tibial alignment jig was then placed in the interface of the tibia and adjusted 14 mm medially. Proximal tibial cut was made removed to 3 mm of bone from the medial side. The tibia was then sized to a size 67. We did did have to downsize this slightly in order to get the appropriate rotation of the implant. Attention drawn the femur. The distal femur examined the sharp drill. Intramedullary canal was suction. A left 5 degree valgus cutting guide was placed. Distal femoral cutting block was pinned in place. Distal femoral cut was made to take an additional 3 mm bone off distal femur. The femur was then sized to a size 65. The AP cutting block was pinned parallel to the epicondylar axis which was 5 degrees of external rotation. Anterior cut, anterior chamfer, posterior cut, posterior chamfer cuts were made. The box cutting guide was placed in just slight lateral and the box cut was made. The knee was flexed. The remnants of the medial and lateral menisci were excised. The osteophytes were taken off the posterior aspect of femur. Trial femoral component was placed. The tibial tray was pinned in maximum external rotation and the drill and stem punch used to create defect in proximal tibia for the tibial tray. The knee was then trialed and the 14 mm insert fit most appropriately. Attention drawn the patella. The patella was cleaned of all soft tissues. Patella thickness measured 20 mm in thickness was cut down to 13. Was sized to a size 28 patella. The lug holes were drilled for the 20-week patella. The lateral osteophytes removed. Patella button was placed. Knee was taken through range of motion patella tracked nicely with no thumbs test. Attention drawn to placing permanent components. All trial components were removed. Bone plug was placed in the distal femur limit blood loss. Double batch Palacos G cement was mixed. Biomet Vanguard size 65 left posterior stabilized femoral component, size 67 tibial tray, a 14 mm posterior stabilized polyethylene insert, and a 28 x 8 all Paller patella were then cemented in place. Knee was brought out into full extension total cement hardened. Final cement check was then performed. The pericapsular tissues were injected with total 100 cc of combination of 20 cc of Exparel, 30 cc normal saline, 50 cc of quarter percent Marcaine with epinephrine. Patient did receive 1 g tranexamic acid. The tourniquet was let down for final turn time of 58 minutes. Hemostasis reduced electrocautery. Extensor mechanism closed with combination 1 PDS suture and 1 Vicryl suture in [id number] fashion with extensor mechanism checked found to be intact the subcutaneous tissue then closed with 2 Dexon suture in a buried interrupted fashion skin was closed skin debra. Leg was then cleaned and dried a sterile dressing was Xeroform, 4 x 4's, sterile cast padding, Michael bandage were applied. Patient then transferred to the recovery room in stable condition. The patient tolerated procedure well and there are no complications. Enrique Neely, my physician assistant teaching professor, was present for the entire procedure. His assistance was essential and required for appropriate patient positioning, prepping and draping, surgical exposure, performing the technical details of the operation, placement the implants, closure of the wound, and placement of the sterile bandage. I attest to the content of the Intraoperative Record and any orders documented therein. Any exceptions are noted below.
[2022-04-01] MEDS ORDERED: HYDROmorphone INJ 0.5 MG/0.5 ML SYR IV PRN (09:53)
[2022-04-01] MEDS ORDERED: ALUMINUM/MAGNESIUM SUSP 30 ML UDC PO PRN (09:53)
[2022-04-01] MEDS ORDERED: bisacodyL 10 MG SUPP PR PRN (09:53)
[2022-04-01] MEDS ORDERED: AZELAIC ACID 15% TOP PRN (09:53)
[2022-04-01] MEDS ORDERED: RIZATRIPTAN BENZOATE 10 MG TAB PO PRN (09:53)
[2022-04-01] MEDS ORDERED: NON-FORMULARY MEDICATION (Fluorometholone 0.1 % Drops,Suspension) OP SCH (09:53)
[2022-04-01] MEDS ORDERED: traMADol HCL 50 MG TABLET PO PRN (09:53)
[2022-04-01] MEDS ORDERED: NALOXONE HCL 0.4 MG/1 ML VIAL/CARP IV PRN (09:53)
[2022-04-01] MEDS ORDERED: METOCLOPRAMIDE HCL INJ 5 MG/ML 2 ML VIAL IV PRN (09:53)
[2022-04-01] MEDS ORDERED: MAGNESIUM HYDROXIDE SUSP 30 ML UDC PO PRN (09:53)
[2022-04-01] MEDS: SODIUM CHLORIDE 0.9% 1000ML 1,000 ML IV SCH ×2 (10:06→19:45)
--- NOTE | 2022-04-01 10:31 | Anesthesiology Progress Note ---
Date of Service April 01, 2022 Anesthesia Post Procedure Vital Signs Vital Signs: Temp Pulse Pulse Resp BP Pulse Ox O2 Del Method 04/01/22 10:00 36.5 C 90 16 117/77 97 Room Air 04/01/22 09:45 93 H 12 103/60 96 Room Air 04/01/22 09:35 36.4 C L 86 12 102/60 94 Room Air 04/01/22 09:25 93 H 12 103/57 L 94 Room Air 04/01/22 09:15 90 12 110/61 96 Room Air 04/01/22 09:05 96 H 18 119/65 95 Room Air 04/01/22 08:59 36.2 C L 102 H 16 101/59 L 96 Room Air 04/01/22 05:35 36.6 C 65 20 148/98 H 97 Room Air Transfer of Care Handoff Completed per policy Notes Mental Status: alert / awake / arousable Patient Amnestic to Procedure: Yes Nausea / Vomiting: adequately controlled Pain: adequately controlled Airway Patency, RR, SpO2: stable & adequate BP & HR: stable & adequate Hydration State: stable & adequate Neuraxial Anesthesia: was administered and sensory block is resolving Anesthetic Complications: no major complications apparent and Pt Satisfied with anesthetic care
[2022-04-01] MEDS: PANTOprazole 40 MG TAB PO SCH (11:14)
[2022-04-01] MEDS: DOCUSATE SODIUM/SENNA 50/8.6MG TAB PO SCH (11:14)
[2022-04-01] MEDS: CALCIUM 600MG + VIT D 400 IU TAB PO SCH (11:15)
[2022-04-01] MEDS: CHOLECALCIFEROL 1,000 UNITS 25 MCG TAB PO SCH (11:15)
[2022-04-01] MEDS: DOCUSATE SODIUM 100 MG CAP PO SCH ×2 (11:15→20:58)
[2022-04-01] MEDS: CETIRIZINE HCL 10 MG TABLET PO SCH (11:15)
[2022-04-01] MEDS: lisinopril 20 MG TAB PO SCH (11:15)
[2022-04-01] MEDS: ASPIRIN 81 MG ECTAB PO SCH ×2 (11:15→20:59)
[2022-04-01] MEDS: hydroCHLOROthiazide 25 MG TAB PO SCH (11:16)
[2022-04-01] MEDS: MULTIVITAMIN TAB PO SCH (11:16)
--- NOTE | 2022-04-01 11:24 | XRay Report ---
XR knee LT 1 or 2V routine CLINICAL HISTORY: Surgical Post Op TECHNIQUE: 2 views of the left knee were obtained. Comparison: Comparison is made to left knee radiographs 02/28/2022 FINDINGS: Patient is status post total knee arthroplasty with expected postsurgical changes including soft tiss ue swelling and subcutaneous emphysema. No periarticular lucency or hardware fracture is seen. IMPRESSION: Expected postoperative appearance status post placement of total knee arthroplasty. ACT 112: Negative or not required by law. Electronically signed by: Gerald Ibarra M.D. 04/01/2022 11:22 AM
[2022-04-01] MEDS: KETOROLAC TROMETHAMINE 15 MG/ML VIAL IV SCH ×2 (13:41→20:58)
--- NOTE | 2022-04-01 14:37 | Progress Notes ---
DATE OF SERVICE: 04/01/2022. SUBJECTIVE: A 76-year-old white female postoperative from a left knee replacement. She is doing wel l. Really not much pain. No chest pain or shortness of breath. Not feeling dizzy or lightheaded. OBJECTIVE: VITAL SIGNS: Temperature is 36.3. Vital signs are stable. GENERAL: Shows a pleasant middle-aged female. She is sitting up in bed and looks completely comfort able. LUNGS: Clear to auscultation. HEART: Has a regular rate and rhythm. ABDOMEN: Soft, nontender, nondistended. EXTREMITIES: Grossly neurovascularly intact except as follows: Examination of the left leg reveals the leg to be well aligned. Dressing is clean, dry and intact. She can dorsiflex and plantarflex he r foot appropriately. She is neurologically intact. X-RAYS: X-rays of left knee from recovery room were reviewed. It shows cemented posterior stabilize d total knee arthroplasty. Components looked to be in good position. No signs of problems. ASSESSMENT: A 76-year-old white female postoperative from a left knee replacement, doing well. Pain is controlled. She is neurologically intact. PLAN: 1. DVT prophylaxis includes thigh-high TEDs, SCDs, and aspirin twice a day. 2. PT, OT, weightbear as tolerated. Left total knee protocol. 3. Pain control, doing okay with current pain regimen. 4. IV antibiotics x24 hours. 5. Disposition: Plan to discharge to home and then she is going to do outpatient therapy on her own . Job ID: [id number]
[2022-04-01] MEDS ORDERED: TRANEXAMIC ACID / 0.7% NACL 1,000 MG/100 ML BAG IV SCH (15:00)
[2022-04-01] MEDS: ceFAZolin 2000MG 2,000 MG/15 ML SYR IV SCH ×2 (15:12→22:40)
[2022-04-01] MEDS: ASCORBIC ACID 500 MG TAB PO SCH (16:15)
[2022-04-01] MEDS ORDERED: SENNA 8.6 MG TAB PO SCH (21:00)
[2022-04-01] MEDS: ACETAMINOPHEN 500 MG TAB PO SCH (21:00)
[2022-04-01] MEDS ORDERED: ATORVASTATIN 20 MG TAB PO SCH (21:00)
[2022-04-02] MEDS: KETOROLAC TROMETHAMINE 15 MG/ML VIAL IV SCH ×3 (02:08→13:24)
[2022-04-02] MEDS: ACETAMINOPHEN 500 MG TAB PO SCH ×2 (05:30→13:24)
[2022-04-02] MEDS: SODIUM CHLORIDE 0.9% 1000ML 1,000 ML IV SCH (06:24)
[2022-04-02 06:45] LABS: Hematocrit (blood only) 26.4 % (34.1-44.9); Hemoglobin 9.3 g/dl (12.0-16.0); Mean Corpuscular Hgb Conc 35.2 g/dL (32.0-36.0); Mean Corpuscular Volume 90.7 fL (80.0-100.0); Mean Platelet Volume 12.3 fL (9.4-12.3); Platelet Count 132 K/uL (130-400); RDW Coefficient of Variation 12.6 % (11.5-14.5); RDW Standard Deviation 41.8 fL (36.4-46.3); Red Blood Count 2.91 M/uL (3.93-5.22); White Blood Count 8.69 K/ul (4.8-10.8)
[2022-04-02 07:07] LABS: BUN Creatinine Ratio 30.8 (10-20); Calcium 8.1 mg/dl (8.5-10.1); Est GFR (African American) 99.3 ml/min; Est GFR (Non-African American) 85.6 ml/min; Potassium 3.6 mmol/L (3.5-5.1)
[2022-04-02] MEDS ORDERED: dexAMETHasone 10 MG in SYRINGE 0 ML IV SCH (08:00)
[2022-04-02] MEDS: DOCUSATE SODIUM/SENNA 50/8.6MG TAB PO SCH (08:18)
[2022-04-02] MEDS: ASPIRIN 81 MG ECTAB PO SCH (08:18)
[2022-04-02] MEDS: CETIRIZINE HCL 10 MG TABLET PO SCH (08:18)
[2022-04-02] MEDS: lisinopril 20 MG TAB PO SCH (08:18)
[2022-04-02] MEDS: DOCUSATE SODIUM 100 MG CAP PO SCH (08:19)
[2022-04-02] MEDS: ASCORBIC ACID 500 MG TAB PO SCH (08:19)
[2022-04-02] MEDS: CALCIUM 600MG + VIT D 400 IU TAB PO SCH (08:19)
[2022-04-02] MEDS: PANTOprazole 40 MG TAB PO SCH (08:19)
[2022-04-02] MEDS: MULTIVITAMIN TAB PO SCH (08:19)
[2022-04-02] MEDS: hydroCHLOROthiazide 25 MG TAB PO SCH (08:19)
[2022-04-02] MEDS: CHOLECALCIFEROL 1,000 UNITS 25 MCG TAB PO SCH (08:20)
--- NOTE | 2022-04-02 13:32 | Progress Notes ---
DATE OF SERVICE: 04/02/2022 SUBJECTIVE: A 76-year-old white female postoperative day 1 from a left knee replacement. She is doi ng quite well. Therapy went well. Pain is controlled. Having just some quad discomfort. Hoping to go home. No chest pain or shortness of breath. OBJECTIVE: VITAL SIGNS: Temperature 37.1. Vital signs are stable. GENERAL: Shows a pleasant, elderly female. She is walking around the room using a walker quite well and comfortably. EXTREMITIES: Examination of the left knee reveals dressing to be clean, dry, and intact. She can do rsiflex and plantarflex her foot appropriately. She is neurologically intact. LABORATORY DATA: Hemoglobin 9.3. Hematocrit 26.4. Electrolytes are stable. ASSESSMENT: A 76-year-old female postoperative day 1 from left knee replacement, doing well. Pain i s controlled. She is neurologically intact. She did well in Therapy. PLAN: 1. DVT prophylaxis includes thigh-high TEDs, SCDs, and aspirin twice a day. 2. PT, OT, weightbear as tolerated. Left total knee protocol. 3. Pain control, doing okay with current pain regimen. 4. Disposition: Plan to discharge to home and she is going to do outpatient therapy. Job ID: [id number]
--- NOTE | 2022-04-07 07:42 | Discharge Summary ---
Date of Service April 07, 2022 Discharge Data Procedures Performed Operation Date: 04/01/22 07:00 Actual Procedures p Left Total Knee Arthroplasty(Left) - Cruzito Trimble MD Hospital Course (1) Status post total left knee replacement: This is a 76 year old patient admitted on 04/01/22 and underwent total knee arthroplasty. She tolerated the procedure well and there were no complications. Transferred to the PACU post op and later to the orthopedic floor for further care. She was given ancef for antibiotic prophylaxis. She was also given ALLY stockings, SCDs, and aspirin for DVT prophylaxis. Hemoglobin, hematocrit, and vital signs were monitored during her hospital stay and remained stable. Did not require any blood transfusions. There were no complications during her hospital stay. By post op day #1 the patient was tolerating a regular diet, pain was reasonably controlled with oral pain medicine, and she was participating in physical therapy. On post op day #1 the patient was discharged home. She was given printed discharge instructions including prescriptions for extra strength tylenol, aspirin, ketorolac, zofran, senokot, and tramadol. Continue physical therapy, weight bearing as tolerated. Continue ALLY stockings. Follow up approximately 2 weeks post op or sooner if there are problems or concerns. Coding Level of Care Code None Diagnoses Status post total left knee replacement Z96.652
== END 2022-04-02 14:14 | disposition home or self-care (01) ==
LOC: 3E 05:01 → ASU 05:01